=== PATIENT | female | born 1990 | race Caucasian/White ===

== ENCOUNTER 2018-12-23 04:55 | Emergency (ER) | payer SELFPAY ==
[~2018-12-23] VITALS: Ht 157.5 cm; Wt 56.0 kg
[2018-12-23 05:06] VITALS: BP 141/67; PULSE 90; RESP 16; Ht 157.5 cm; Wt 56.0 kg
[2018-12-23] MEDS ORDERED: KETOROLAC 30 MG INJ IM STA (05:43)
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
[2018-12-23] MEDS ORDERED: CYCL10TA7 PO (05:58)
[2018-12-23] MEDS ORDERED: IBUP-1542 PO (05:58)
== END 2018-12-23 06:51 | disposition home or self-care (01) ==
LOC: FTE 04:55
DX: S20.229A Contusion of unspecified back wall of thorax, initial encounter (principal); S10.93XA Contusion of unspecified part of neck, initial encounter; M54.9 Dorsalgia, unspecified; V49.40XA Driver injured in collision with unspecified motor vehicles in traffic accident, initial encounter
CPT/HCPCS: 71046; 72040; 81025; 96372; 99284; J1885